=== PATIENT | male | born 1980 | race Caucasian/White ===

== ENCOUNTER 2016-10-11 12:20 | Emergency (ER) | payer BC ==
[2016-10-11] MEDS ORDERED: Lidocaine 1% 20 ML MDV ONE (12:59)
== END 2016-10-11 14:17 | disposition home or self-care (01) ==
LOC: BURERS 12:20
DX: L03.011 Cellulitis of right finger (principal); E78.5 Hyperlipidemia, unspecified; I10 Essential (primary) hypertension; F17.210 Nicotine dependence, cigarettes, uncomplicated
CPT/HCPCS: 10060; J2001

== ENCOUNTER 2017-02-11 11:07 | Emergency (ER) | payer BC ==
--- NOTE | 2017-02-11 12:24 | RAD ---
CHEST 2 VIEWS: Date: 02/11/17 HISTORY: Cough. COMPARISON: Chest 2 views dated 06/19/15. FINDINGS: Lungs are clear. No pneumothorax or effusion. Cardiac silhouette and mediastinal contours within norm al limits. IMPRESSION: No acute intrathoracic abnormality. POS: [id number]
== END 2017-02-11 11:48 | disposition home or self-care (01) ==
LOC: BURERS 11:07
DX: B35.4 Tinea corporis (principal); I10 Essential (primary) hypertension; F17.210 Nicotine dependence, cigarettes, uncomplicated
CPT/HCPCS: 71020; 99406